=== PATIENT | female | born 1970 | race Caucasian/White ===

== ENCOUNTER 2017-08-24 12:53 | Outpatient (CLI) | payer BC | END 2017-08-24 12:54 | disposition home or self-care (01) | LOC: BICMAMMO 12:53 | PROVIDERS: ATTEND Obstetrics & Gynecology | DX: Z12.31 Encounter for screening mammogram for malignant neoplasm of breast (principal) | CPT/HCPCS: 77063; 77067 ==

== ENCOUNTER 2019-08-01 15:42 | Outpatient (CLI) | payer BC ==
[~2019-08-01 15:42] MED LIST: Iopamidol-370 76% 500 ML 1 ML ONE
--- NOTE | 2019-08-01 16:55 | CT ---
Exam: CT IAC/temporal bones with contrast HISTORY: Problems with past 3 weeks. Unable to hear out of the left ear. Otorrhea of the left ear. Comparison none TECHNIQUE: Postcontrast CT of the IAC and temporal bones performed in the axial plane. Coronal reform atted images are submitted for dictation FINDINGS: Visualized brain parenchyma is unremarkable. Visualized orbits are unremarkable. Adequate aeration visualized paranasal sinuses. Visualized nasopharynx is also unremarkable No obvious abnormal enhancement noted in either periauricular region or in either left/right cerebell opontine angle cistern. Right IAC/temporal bone: The internal auditory canal, cochlea, vestibule and semicircular canals have appropriate appearance and configuration. Vestibular aqueduct is not enlarged. Adequate aeration of the middle ear. Ossicular chain is intact. Stapedial footplate appropriately located. Scutum is sh elvin. Tegmen tympani and tegmen mastoideum are preserved. Adequate aeration of the mastoid air cells. The interosseous septae of the mastoid air cells are intact. Tympanic membrane and external au ditory canal is unremarkable Left IAC/temporal bone: Internal auditory canal, cochlea, vestibule and semicircular canals have appr opriate appearance and configuration. Vestibular aqueduct is nonenlarged. Adequate aeration of the middle ear. Ossicular chain is intact. Stapedial footplate appropriately located. Scutum is sharp. No abnormal hypodensity in Prussak's space. Tegmen tympani and tegmen mastoideum are preserved. There is near complete opacification of the left mastoid air cells. No significant destruction of the left mastoid osseous septae. Slight retraction of the left tympanic membrane. External auditory canal is patent. IMPRESSION: 1. Opacification of the left mastoid air cells without osseous destruction of the mastoid septae. Cor relate for infectious inflammatory process of the left mastoid air cells. Overlying skin/dermis does not demonstrate any obvious inflammatory change. 2. Mild retraction of the left tympanic membrane. Transcribed Date/Time: 08/01/2019 5:49 PM
== END 2019-08-01 15:43 | disposition home or self-care (01) ==
LOC: BICCT 15:42 → CT 15:43
PROVIDERS: ATTEND Specialist
DX: H92.12 Otorrhea, left ear (principal); H73.892 Other specified disorders of tympanic membrane, left ear; R93.0 Abnormal findings on diagnostic imaging of skull and head, not elsewhere classified
CPT/HCPCS: 70481; Q9967

== ENCOUNTER 2019-12-13 09:19 | Outpatient (CLI) | payer BC ==
--- NOTE | 2019-12-13 10:08 | MMO ---
Bilateral MAMMO Bilat Screen [facility]. CLINICAL HISTORY: Patient is 49 years old and is seen for screening. The patient has no family history of breast cancer. The patient has no personal history of cancer. The patient has a history of bilateral Implants in October,. VIEWS: The views performed were: bilateral craniocaudal with tomosynthesis and bilateral mediolateral oblique with tomosynthesis. FILMS COMPARED: The present examination has been compared to prior imaging studies performed at [facility] on 08/24/2017, and at [facility] on 10/20/2010, 09/17/2012 and 11/26/2014. This study has been interpreted with the assistance of computer-aided detection. MAMMOGRAM FINDINGS: There are scattered fibroglandular densities. There are no suspicious masses, suspicious calcifications, or new areas of architectural distortion. IMPRESSION: THERE IS NO MAMMOGRAPHIC EVIDENCE OF MALIGNANCY. A ROUTINE FOLLOW-UP MAMMOGRAM IN 1 YEAR IS RECOMMENDED. THE RESULTS OF THIS EXAM WERE SENT TO THE PATIENT. ACR BI-RADS Category 1 - Negative MAMMOGRAPHY NOTE: 1. A negative mammogram report should not delay a biopsy if a dominant of clinically suspicious mass is present. 2. Approximately 10% to 15% of breast cancers are not detected by mammography. 3. Adenosis and dense breasts may obscure an underlying neoplasm. Reported by: HOMER ALSTON MD Electonically Signed: [id number]
--- NOTE | 2019-12-13 10:12 | CT ---
CT SINUSES WITHOUT CONTRAST: Date: 12/13/2019 COMPARISON: CT IAC dated 08/01/2019. HISTORY: Acute recurrent sinusitis. Prior left mastoid surgery. TECHNIQUE: Multiple contiguous axial images were obtained in a CT of the sinuses without contrast. Sagittal and coronal reformats were performed. FINDINGS: The frontal, maxillary, ethmoid, and sphenoid sinuses are well aerated. The bilateral maxillary ostio meatal units are patent. No significant increased density of the bones surrounding the sinuses is see n to suggest chronic sinus disease. The globes and retrobulbar soft tissues are unremarkable. The patient has had prior left mastoid surg kerry. The right mastoid air cells are well aerated. The middle ears are well aerated. IMPRESSION: 1. No significant sinus disease. 2. Interval left mastoid surgery. POS: DAGOBERTO
== END 2019-12-13 09:20 | disposition home or self-care (01) ==
LOC: BICMAMMO 09:19
DX: Z12.31 Encounter for screening mammogram for malignant neoplasm of breast (principal); J01.91 Acute recurrent sinusitis, unspecified; Z98.82 Breast implant status; Z98.890 Other specified postprocedural states
CPT/HCPCS: 77063; 77067